=== PATIENT | male | born 1985 | race Hispanic/Latino ===

== ENCOUNTER 2016-10-18 21:48 | Emergency (ER) | payer OTHER ==
[~2016-10-18] VITALS: Ht 170.2 cm; Wt 115.0 kg
[~2016-10-18 21:48] MED LIST: HYDROXYCHLOR200 MG PO; NAPROSYN500 MG PO; NO; PREDNISONE20 MG PO
[2016-10-18] MEDS ORDERED: PREDNISONE20 MG PO ×2 (22:12→22:32)
[2016-10-18 22:37] VITALS: BP 119/79
== END 2016-10-18 22:40 | disposition home or self-care (01) | DRG 951 ==
LOC: ED 21:48
DX: Z76.0 Encounter for issue of repeat prescription (principal); M32.9 Systemic lupus erythematosus, unspecified; M06.9 Rheumatoid arthritis, unspecified

== ENCOUNTER 2018-10-27 20:46 | Emergency (ER) | payer SELFPAY ==
[~2018-10-27] VITALS: Ht 170.2 cm; Wt 110.0 kg
[2018-10-27] MEDS ORDERED: PREDNISONE20 MG PO ×2 (21:06→21:15)
[2018-10-27 21:20] VITALS: BP 141/87
== END 2018-10-27 21:20 | disposition home or self-care (01) | DRG 951 ==
LOC: ED 20:46
DX: Z76.0 Encounter for issue of repeat prescription (principal)

== ENCOUNTER 2020-02-04 11:18 | Emergency (ER) | payer SELFPAY ==
[~2020-02-04] VITALS: Ht 170.2 cm; Wt 120.0 kg
[2020-02-04] MEDS ORDERED: MOTRIN400 MG PO (12:20)
[2020-02-04] MEDS ORDERED: CYCLOBENZAPR5 MG PO (12:20)
[2020-02-04 12:45] VITALS: BP 154/81
== END 2020-02-04 12:46 | disposition home or self-care (01) | DRG 552 ==
LOC: ED 11:18
DX: M54.5 Low back pain (principal); M06.9 Rheumatoid arthritis, unspecified

== ENCOUNTER 2020-07-23 10:12 | Emergency (ER) | payer SELFPAY ==
[~2020-07-23] VITALS: Ht 170.2 cm; Wt 145.0 kg
[~2020-07-23 10:12] MED LIST changes: +CYCLOBENZAPR5 MG PO; +MOTRIN400 MG PO
[2020-07-23] MEDS ORDERED: PREDNISONE20 MG PO (10:42)
[2020-07-23] MEDS ORDERED: TRAMADOL HYDROC50 MG PO (10:54)
[2020-07-23] MEDS ORDERED: HYDROXYCHLOR200 MG PO (10:54)
[2020-07-23 10:57] VITALS: BP 129/83
== END 2020-07-23 10:57 | disposition home or self-care (01) | DRG 951 ==
LOC: ED 10:12
DX: Z76.0 Encounter for issue of repeat prescription (principal); R21 Rash and other nonspecific skin eruption; T38.0X6A Underdosing of glucocorticoids and synthetic analogues, initial encounter; M06.9 Rheumatoid arthritis, unspecified; Z79.52 Long term (current) use of systemic steroids; Z79.899 Other long term (current) drug therapy; Z91.128 Patient's intentional underdosing of medication regimen for other reason

== ENCOUNTER 2020-10-29 22:43 | Observation (INO) | payer OTHER ==
[~2020-10-29] VITALS: Ht 170.2 cm; Wt 94.0 kg
[~2020-10-29 22:43] MED LIST changes: +TRAMADOL HYDROC50 MG PO
--- NOTE | 2020-10-29 22:44 | NUR ---
BY WC TO ROOM. PT IMMEDIATELY NEEDED TO GO TO BATHROOM TO DEFACATE.
--- NOTE | 2020-10-29 23:22 | NUR ---
Reassessment of patient completed. No distress noted.
[2020-10-29 23:29] LABS: HEMATOCRIT 42.6 % (39.0-50.0); HEMOGLOBIN 13.8 g/dl (14.0-18.0); IMMATURE GRANULOCYTES 0.4 % (0.0-5.0); MEAN CELL VOLUME 87.5 fL CALC (80.0-100.0); MEAN CORPUSCULAR HGB 28.3 pG CALC (26.0-32.0); MEAN CORPUSCULAR HGB CONC 32.4 g/dL CAL (32.0-36.0); NEUT# 11.34 thou/uL (1.82-7.42); RED BLOOD COUNT 4.87 mill/uL (4.70-6.10); RED CELL DISTRI WIDTH 13.8 % (11.5-15.5)
[2020-10-29 23:31] LABS: ALBUMIN 3.9 g/dL (3.2-5.0); ALKALINE PHOSPHATASE 77 u/l (38-126); AMYLASE 58 u/l (30-110); ANION GAP 12 (6-22 (CALC)); BILIRUBIN, TOTAL 1.5 mg/dL (0.0-1.4); BUN 7 mg/dL (9-20); BUN/CREATININE RATIO 9 (12-20 (CALC)); CARBON DIOXIDE 26 mmol/l (22-30); CHLORIDE 98 mmol/l (95-108); CREATININE 0.8 mg/dL (0.7-1.3); GFR > 60 ML/MIN (>=60 (CALC)); GFR FOR AFR.AMER. > 60 ML/MIN (>=60 (CALC)); LIPASE 48 u/l (23-300); POTASSIUM 3.3 mmol/l (3.5-5.1); SGOT/AST 19 u/l (17-59); SODIUM 132 mmol/l (137-146); TOTAL PROTEIN 7.8 g/dL (6.3-8.2)
[2020-10-29 23:38] LABS: D-DIMER 0.32 mg/L (0.19-0.60)
[2020-10-29 23:41] LABS: ACT PARTIAL THROMBO TIME 27.5 SECONDS (20.0-32.5); INTERNATIONAL NORMALIZED RATIO 1.1 RATIO (0.7-1.3); PROTHROMBIN TIME 11.2 SECONDS (9.0-12.5)
[2020-10-29 23:43] LABS: MYOGLOBIN 24 ng/mL (0 - 121)
--- NOTE | 2020-10-29 23:55 | NUR ---
Reassessment of patient completed. No distress noted. PT SLEEPING
--- NOTE | 2020-10-30 00:45 | NUR ---
Reassessment of patient completed. No distress noted.
--- NOTE | 2020-10-30 01:13 | NUR ---
PT SITTING AT BEDSIDE TO URINATE FOR LAB SPECIMEN.
[2020-10-30 01:55] VITALS: BP 107/75
--- NOTE | 2020-10-30 01:57 | NUR ---
Admission Note Report Given to: KURTIS Transported by: X Wheelchair Stretcher Transported with: X Nurse Transporter X Patent IV O2 X Academic Advisor Location: ICU X [facility]
--- NOTE | 2020-10-30 03:00 | NUR ---
PATIENT ADMITTED FROM ER VIA WHEELCHAIR WITH ER STAFFF IN ATTENDANCE. PATIENT IS ABLE TO STAND AND TRANSFER TO THE BED. PATIENT IS AWAKE BUT DROWSY. ORIENTED TO PERSON AND PLACE. ANSWERS QUESTIONS AND THEN NODS BACK OUT. PATIENT WITH BEADS OF SWEAT COMING OFF HIS BROW. SKIN IS COLD AND CLAMMY. IV SITE TO RAC DISLODGED AND D/C'ED WITH CATH INTACT. NEW IV SITE STARTED TO RIGHT WRIST. #22 GAUGE WITH GOOD BLOOD RETURN. IVF NS HUNG AND INFUSING AT 125CC/HR. TELE MONITOR IN PLACE-INITIAL READ IS SR-94. PATIENT STATES THAT HE DID HAVE DIARRHEA IN THE ER TONIGHT. DENIES ANY DIFFICULTY WITH URINATION. WILL ANSWER QUESTION AND THEN NOD BACK OUT, HAD TO ASK PATIENT QUESTIONS SEVERAL TIMES TO GET ANSWERS. ASKING FOR FOOD AND THEN HE NODS BACK OUT. STATES THAT HE DID USE "ICE" SATURDAY. DOA WAS POSITIVE FOR METH AND COCAINE. PATIENT ALSO STATES THAT SHE WAS ON PREDNISONE AND RECENTLY STOPPED IT. STATES THAT HE DOESN'T HAVE LOCAL PCP-MOVED HERE FROM [place] AND LIVES WITH HIS MOTHER. ATTEMPTED TO ORIENT PATIENT TO ROOM AND SURROUNDINGS BUT PATIENT IS CURRENTLY SLEEPING. CALL LIGHT IN REACH. WILL CONT TO MONITOR.
[2020-10-30 04:00] VITALS: BP 114/68
--- NOTE | 2020-10-30 05:00 | NUR ---
PATIENT RESTING IN BED WITH EYES CLOSED-RESPS EVEN AND UNLABORED. SKIN IS DRY AT THIS TIME. NO LONGER DIAPHORETIC. TELE MONITOR IN PLACE-LAST READING WAS SR-93. IVF NS PATENT AND INFUSING VIA RIGHT WRIST SITE AT 125CC/HR. CALL LIGHT IN REACH. WILL CONT TO MONITOR.
--- NOTE | 2020-10-30 07:00 | NUR ---
REPORT RECEIVED FROM BEATA HULL
--- NOTE | 2020-10-30 07:30 | NUR ---
PT RESTING IN SEMI FOWLERS POSITION,A&O X3 BUT DROWSY;VS OBTAINED AND ASSESSMENT COMPLETED;PT DENIES ANY CURRENT PAIN OR DISCOMFORTS,PAIN SCALE AND REPORTING EDUCATED;RESPIRATIONS EVEN AND UNLABORED ON RA,CLEAR LUNG SOUNDS;ABDOMEN SOFT ON PALPATION AND ACTIVE IN ALL 4 QUADRANTS;STRONG PEDAL PULSES;SKIN INTACT;TELE MONITORING IN PLACE;#22G TO RW INFUSING NS @ 125ML/HR,SITE APPEARS HEALTHY;PT DENIES ANY ADDITIONAL NEEDS AT THIS TIME AND IS ENCOURAGED TO CALL FOR ASSISTANCE IF NEEDED;FALL PRECAUTIONS IN PLACE WITH BED IN THE LOWEST POSITION AND CALL LIGHT IN REACH;WILL CONTINUE TO MONITOR
[2020-10-30 07:33] VITALS: BP 94/55
--- NOTE | 2020-10-30 10:01 | NUR ---
AT BEDSIDE DISCUSSING POC.
[2020-10-30 10:15] VITALS: BP 102/58
[2020-10-30] MEDS ORDERED: HYDROXYCHLOR200 MG PO (10:17)
[2020-10-30] MEDS ORDERED: KEFLEX500 MG PO (10:18)
[2020-10-30] MEDS ORDERED: PREDNISONE20 MG PO (10:18)
[2020-10-30] MEDS ORDERED: IBUPROFEN600 MG PO (10:22)
--- NOTE | 2020-10-30 10:26 | NUR ---
RT AT BEDSIDE OBTAINING EKG.
--- NOTE | 2020-10-30 10:43 | NUR ---
ALL DISCHARGE INSTRUCTIONS PROVIDED AT THIS TIME.PT INSTRUCTED TO F/U WITH PCP AND INVAS TECH. TAKE KELFEX PRESCRIBED.AVOID RECREATIONAL DRUGS. F/U WITH WITH FOR I&D OF TOE ABCESS TOMORROW 10/31/20;BUSINESS CARD PROVIDED AND ALL RX SENT TO [facility];PT DENIES ANY ADDIITONAL QUESTIONS OR NEEDS;IV SITE REMOVED WITH CATHETER INTACT AND TELE MONITORING D/C;WHEELCHAIR TO BE PROVIDED FOR D/C HOME;FAMILY TO TRANSPORT PT HOME;WILL CONTINUE TO MONITOR
--- NOTE | 2020-10-30 11:00 | NUR ---
Discharge instructions given. Patient verbalizes understanding of same. Discharged in stable condition via Wheelchair to Home with family. All belongings sent with pt. PT TRANSPORTED TO [facility] IN STABLE CONDITION VIA WHEELCHAIR ACCOMPANIED BY TATUM CAVAZOS. ALL BELONGINGS LEFT WITH PT.FAMILY TO TRANSPORT PT HOME.
== END 2020-10-30 11:00 | disposition home or self-care (01) ==
LOC: ED 22:43 → ED-I 23:50 → ED 10-30 00:33 → MS2 10-30 00:34
PROVIDERS: Family Medicine; ADMIT Internal Medicine; ATTEND Internal Medicine
DX: I30.9 Acute pericarditis, unspecified (principal); M32.9 Systemic lupus erythematosus, unspecified; L03.031 Cellulitis of right toe; L02.611 Cutaneous abscess of right foot; M06.9 Rheumatoid arthritis, unspecified; E87.1 Hypo-osmolality and hyponatremia; E87.6 Hypokalemia; D64.9 Anemia, unspecified; T38.0X6A Underdosing of glucocorticoids and synthetic analogues, initial encounter; Z91.128 Patient's intentional underdosing of medication regimen for other reason; Z20.822 Contact with and (suspected) exposure to COVID-19
CPT/HCPCS: G0378; J1650

== ENCOUNTER 2020-12-17 15:44 | Emergency (ER) | payer SELFPAY ==
[~2020-12-17] VITALS: Ht 170.2 cm; Wt 95.4 kg
[~2020-12-17 15:44] MED LIST changes: +IBUPROFEN600 MG PO; +KEFLEX500 MG PO
[2020-12-17] MEDS ORDERED: BACTROBAN TOP (16:54)
[2020-12-17] MEDS ORDERED: KEFLEX500 MG PO (16:54)
[2020-12-17 16:58] VITALS: BP 136/91
== END 2020-12-17 17:07 | disposition home or self-care (01) | DRG 897 ==
LOC: ED 15:44
DX: F15.188 Other stimulant abuse with other stimulant-induced disorder (principal); F42.4 Excoriation (skin-picking) disorder; M06.9 Rheumatoid arthritis, unspecified

== ENCOUNTER 2021-01-16 12:08 | Emergency (ER) | payer SELFPAY ==
[~2021-01-16 12:08] MED LIST changes: +BACTROBAN TOP
[2021-01-16] MEDS ORDERED: PREDNISONE20 MG PO (12:49)
[2021-01-16 13:06] VITALS: BP 118/68
== END 2021-01-16 13:06 | disposition home or self-care (01) | DRG 951 ==
LOC: ED 12:08
DX: Z76.0 Encounter for issue of repeat prescription (principal); M32.9 Systemic lupus erythematosus, unspecified; M06.9 Rheumatoid arthritis, unspecified

== ENCOUNTER 2021-06-27 12:41 | Emergency (ER) | payer SELFPAY ==
[~2021-06-27] VITALS: Ht 170.2 cm; Wt 86.4 kg
[2021-06-27] MEDS ORDERED: KEFLEX500 MG PO (13:13)
[2021-06-27] MEDS ORDERED: PREDNISONE20 MG PO (13:55)
[2021-06-27 13:59] VITALS: BP 110/78
[2021-06-27] MEDS ORDERED: LOTRISONE EX (15:39)
== END 2021-06-27 14:14 | disposition home or self-care (01) | DRG 603 ==
LOC: ED 12:41
DX: L03.211 Cellulitis of face (principal); M06.9 Rheumatoid arthritis, unspecified

== ENCOUNTER 2021-07-29 14:19 | Emergency (ER) | payer SELFPAY ==
[~2021-07-29] VITALS: Ht 170.2 cm; Wt 82.0 kg
[~2021-07-29 14:19] MED LIST changes: +LOTRISONE EX
[2021-07-29 15:51] LABS: URINE BILIRUBIN - DIPSTICK NEGATIVE (NEGATIVE); URINE BLOOD DIPSTICK TRACE-INTACT (NEGATIVE); URINE COLOR YELLOW; URINE GLUCOSE - DIPSTICK NEGATIVE (NEGATIVE); URINE KETONE NEGATIVE (NEGATIVE); URINE LEUK ESTERASE TRACE (NEGATIVE); URINE PROTEIN - DIPSTICK NEGATIVE (NEG-TRACE); URINE SPECIFIC GRAVITY 1.025; URINE UROBILINOGEN - DIPSTICK 0.2 E.U./dL (0.2)
[2021-07-29 15:53] LABS: URINE NITRITE - DIPSTICK NEGATIVE (Negative)
[2021-07-29] MEDS ORDERED: CYCLOBENZAPRINE10 MG PO (17:54)
[2021-07-29 18:05] VITALS: BP 125/84
== END 2021-07-29 18:10 | disposition home or self-care (01) | DRG 552 ==
LOC: ED 14:19
PROVIDERS: Family Medicine
DX: M54.50 Low back pain, unspecified (principal); M06.9 Rheumatoid arthritis, unspecified

== ENCOUNTER 2021-10-02 09:49 | Emergency (ER) | payer OTHER ==
[~2021-10-02] VITALS: Ht 165.1 cm; Wt 86.3 kg
[~2021-10-02 09:49] MED LIST changes: +CYCLOBENZAPRINE10 MG PO
[2021-10-02 10:39] LABS: HEMATOCRIT 43.3 % (39.0-50.0); HEMOGLOBIN 14.3 g/dl (14.0-18.0); IMMATURE GRANULOCYTES 0.1 % (0.0-5.0); MEAN CELL VOLUME 87.1 fL CALC (80.0-100.0); MEAN CORPUSCULAR HGB 28.8 pG CALC (26.0-32.0); NEUT# 4.84 thou/uL (1.82-7.42); RED BLOOD COUNT 4.97 mill/uL (4.70-6.10); RED CELL DISTRI WIDTH 12.4 % (11.5-15.5)
[2021-10-02 10:55] LABS: ALBUMIN 3.9 g/dL (3.2-5.0); BUN 10 mg/dL (9-20); BUN/CREATININE RATIO 14 (12-20 (CALC)); CARBON DIOXIDE 28 mmol/l (22-30); CHLORIDE 103 mmol/l (95-108); CREATININE 0.7 mg/dL (0.7-1.3); GFR > 60 ML/MIN (>=60 (CALC)); GFR FOR AFR.AMER. > 60 ML/MIN (>=60 (CALC)); SGOT/AST 23 u/l (17-59); TOTAL PROTEIN 7.6 g/dL (6.3-8.2)
[2021-10-02 11:07] LABS: MYOGLOBIN 13 ng/mL (0 - 121)
[2021-10-02 11:45] LABS: ALKALINE PHOSPHATASE 126 u/l (38-126); ANION GAP 13 (6-22 (CALC)); BILIRUBIN, TOTAL 0.4 mg/dL (0.0-1.4); POTASSIUM 4.1 mmol/l (3.5-5.1); SODIUM 140 mmol/l (137-146)
[2021-10-02 12:20] LABS: URINE BILIRUBIN - DIPSTICK NEGATIVE (NEGATIVE); URINE BLOOD DIPSTICK TRACE-INTACT (NEGATIVE); URINE COLOR YELLOW; URINE GLUCOSE - DIPSTICK NEGATIVE (NEGATIVE); URINE KETONE NEGATIVE (NEGATIVE); URINE LEUK ESTERASE NEGATIVE (NEGATIVE); URINE PROTEIN - DIPSTICK NEGATIVE (NEG-TRACE)
[2021-10-02 12:29] LABS: URINE NITRITE - DIPSTICK NEGATIVE (Negative)
[2021-10-02] MEDS ORDERED: PREDNISONE20 MG PO (12:34)
[2021-10-02] MEDS ORDERED: ULTRAM50 M1 PO (12:36)
[2021-10-02 12:40] VITALS: BP 115/80
== END 2021-10-02 12:54 | disposition home or self-care (01) | DRG 313 ==
LOC: ED 09:49
PROVIDERS: Emergency Medicine
DX: R07.89 Other chest pain (principal)

== ENCOUNTER 2022-08-03 08:32 | Emergency (ER) | payer SELFPAY ==
[~2022-08-03] VITALS: Ht 165.1 cm; Wt 84.0 kg
[~2022-08-03 08:32] MED LIST changes: +ULTRAM50 M1 PO
[2022-08-03] MEDS ORDERED: HYDROXYCHLOR200 MG PO (10:05)
[2022-08-03] MEDS ORDERED: PREDNISONE20 MG PO (10:05)
[2022-08-03 10:49] VITALS: BP 131/93
== END 2022-08-03 10:50 | disposition home or self-care (01) | DRG 547 ==
LOC: ED 08:32
DX: M06.80 Other specified rheumatoid arthritis, unspecified site (principal); M32.9 Systemic lupus erythematosus, unspecified; Z76.0 Encounter for issue of repeat prescription

== ENCOUNTER 2022-10-19 23:26 | Emergency (ER) | payer SELFPAY ==
[~2022-10-19] VITALS: Ht 165.1 cm; Wt 83.9 kg
[2022-10-19 23:33] VITALS: BP 125/83
[2022-10-20] MEDS ORDERED: VOLTAREN - GENE75 MG PO (00:43)
[2022-10-20] MEDS ORDERED: KEFLEX500 MG PO ×2 (00:44→00:45)
[2022-10-20] MEDS ORDERED: VOLTAREN75 MG PO (00:45)
[2022-10-20 00:51] VITALS: BP 125/83
== END 2022-10-20 01:05 | disposition home or self-care (01) | DRG 563 ==
LOC: ED 23:26
DX: S39.012A Strain of muscle, fascia and tendon of lower back, initial encounter (principal); X58.XXXA Exposure to other specified factors, initial encounter; Y92.009 Unspecified place in unspecified non-institutional (private) residence as the place of occurrence of the external cause; S91.332A Puncture wound without foreign body, left foot, initial encounter; W45.0XXA Nail entering through skin, initial encounter

== ENCOUNTER 2023-06-30 21:54 | Emergency (ER) | payer OTHER ==
[~2023-06-30] VITALS: Ht 165.1 cm; Wt 82.0 kg
[~2023-06-30 21:54] MED LIST changes: +VOLTAREN - GENE75 MG PO; +VOLTAREN75 MG PO
[2023-06-30 22:54] LABS: ANION GAP 13 (6-22 (CALC)); BUN 12 mg/dL (9-20); BUN/CREATININE RATIO 19 (12-20 (CALC)); CARBON DIOXIDE 23 mmol/l (22-30); CHLORIDE 104 mmol/l (95-108); CREATININE 0.6 mg/dL (0.7-1.3); GFR FOR AFR.AMER. > 60 ML/MIN (>=60 (CALC)); GFR OTHER RACES > 60 ML/MIN (>=60 (CALC)); POTASSIUM 3.8 mmol/l (3.5-5.1); SODIUM 136 mmol/l (137-146)
[2023-06-30] MEDS ORDERED: TRAMADOL HCL50 MG PO (23:24)
[2023-06-30] MEDS ORDERED: STERAPRED DS10 MG PO (23:24)
[2023-06-30 23:44] VITALS: BP 138/91
== END 2023-06-30 23:44 | disposition home or self-care (01) ==
LOC: ED 21:54
PROVIDERS: Family Medicine
DX: M06.9 Rheumatoid arthritis, unspecified (principal); M32.9 Systemic lupus erythematosus, unspecified

== ENCOUNTER 2023-11-25 11:41 | Emergency (ER) | payer OTHER ==
[~2023-11-25] VITALS: Ht 165.1 cm; Wt 185.0 kg
[~2023-11-25 11:41] MED LIST changes: +STERAPRED DS10 MG PO; +TRAMADOL HCL50 MG PO
[2023-11-25] MEDS ORDERED: BACTRIM DS1 TAB PO (12:21)
[2023-11-25] MEDS ORDERED: CEPHALEXIN500 M1 PO (12:38)
[2023-11-25 13:20] VITALS: BP 132/77
== END 2023-11-25 13:20 | disposition home or self-care (01) ==
LOC: ED 11:41
DX: L03.011 Cellulitis of right finger (principal); Z72.0 Tobacco use